=== PATIENT | female | born 1980 | race Caucasian/White ===

== ENCOUNTER 2020-01-29 19:07 | Emergency (ER) | payer BC, MEDICAID, OTHER ==
[2020-01-29] MEDS ORDERED: Acetaminophen/HYDROcodone 325-10 MG Tab PO ONE (19:44)
--- NOTE | 2020-01-29 19:50 | CR ---
PROCEDURE INFORMATION: Exam: XR Right Ankle Exam date and time: 01/29/2020 7:25 PM Age: 39 years old Clinical indication: Other: Right lateral ankle pain TECHNIQUE: Imaging protocol: XR Right ankle. Views: 3 or more views. COMPARISON: No relevant prior studies available. FINDINGS: Bones/joints: Spiral fracture distal fibula. Soft tissues: Soft tissue edema lateral malleolus. IMPRESSION: 1. Soft tissue edema lateral malleolus. 2. Spiral fracture distal fibula.
--- NOTE | 2020-01-29 19:51 | EDM.PDOC ---
ED HPI GENERAL MEDICAL PROBLEM - General Chief Complaint: Lower Extremity Injury/Pain Stated Complaint: POSSIBLE BROKEN ANKLE Time Seen by Provider: 01/29/20 19:30 Source of Information: Reports: Patient History Limitations: Reports: No Limitations - History of Present Illness INITIAL COMMENTS - FREE TEXT/NARRATIVE: This 39 yo female patient reports with right lateral ankle pain. The patient reports her dog pulled her while in the leash causing injury. Onset: Today Duration: Constant Location: Reports: Lower Extremity, Right Quality: Reports: Ache, Sharp Severity: Moderate Improves with: Reports: None Worsens with: Reports: None Context: Reports: Trauma Associated Symptoms: Reports: No Other Symptoms Right Ankle Pain Score (Numeric/FACES): 4 - Related Data Allergies Allergy/AdvReac Type Severity Reaction Status Date / Time bee venom protein (honey bee) Allergy Anaphylactic Verified 01/29/20 19:16 Shock Penicillins Allergy Cannot Verified 01/29/20 19:16 Remember Home Meds: Home Meds Topiramate [Topamax] 25 mg PO BEDTIME 01/29/20 [History] Past Medical History HEENT History: Reports: None Cardiovascular History: Reports: None Respiratory History: Reports: None Gastrointestinal History: Reports: None Genitourinary History: Reports: None [employer]IC[employer] History: Reports: None Musculoskeletal History: Reports: None Neurological History: Reports: None Psychiatric History: Reports: Anxiety Endocrine/Metabolic History: Reports: None Hematologic History: Reports: None Immunologic History: Reports: None Oncologic (Cancer) History: Reports: None Dermatologic History: Reports: None - Past Surgical History Head Surgeries/Procedures: Reports: None GI Surgical History: Reports: Appendectomy Female Surgical History: Reports: Section, Other (See Below) Other Female Surgeries/Procedures: 4 c- sections Social & Family History - Tobacco Use Smoking Status *Q: Heavy Tobacco Smoker Years of Tobacco use: 20 Packs/Tins Daily: 1 - Recreational Drug Use Recreational Drug Use: No Review of Systems - Review of Systems Review Of Systems: Comprehensive ROS is negative, except as noted in HPI. ED EXAM, GENERAL - Physical Exam Exam: See Below Exam Limited By: No Limitations General Appearance: Alert, WD/WN, No Apparent Distress Eye Exam: Bilateral Eye: EOMI, Normal Inspection, PERRL Ears: Normal External Exam, Normal Canal, Hearing Grossly Normal, Normal TMs Nose: Normal Inspection Throat/Mouth: Normal Inspection, Normal Lips, Normal Teeth, Normal Gums, Normal Oropharynx, Normal Voice, No Airway Compromise Head: Atraumatic, Normocephalic Neck: Normal Inspection, Supple, Non-Tender, Full Range of Motion Respiratory/Chest: No Respiratory Distress, Lungs Clear, Normal Breath Sounds, No Accessory Muscle Use, Chest Non-Tender Cardiovascular: Normal Peripheral Pulses, Regular Rate, Rhythm, No Edema, No Gallop, No JVD, No Murmur, No Rub GI/Abdominal: Normal Bowel Sounds, Soft, Non-Tender, No Organomegaly, No Distention, No Abnormal Bruit, No Mass (Female) Exam: Deferred Rectal (Female) Exam: Deferred Back Exam: Normal Inspection, Full Range of Motion, NT Extremities: Leg Pain (right lateral ankle pain) Neurological: Alert, Oriented, CN II-XII Intact, Normal Cognition, Normal Gait, Normal Reflexes, No Motor/Sensory Deficits Psychiatric: Normal Affect, Normal Mood Skin Exam: Warm, Dry, Intact, Normal Color, No Rash Lymphatic: No Adenopathy Course - Vital Signs Last Recorded V/S: Last Vital Signs Temp 36.2 C 01/29/20 19:21 Pulse 87 01/29/20 19:21 Resp 16 01/29/20 19:21 BP 123/95 H 01/29/20 19:21 Pulse Ox 100 01/29/20 19:21 - Orders/Labs/Meds Orders: Active Orders 24 hr Category Date Time Status Ankle Min 3V Rt [CR] Urgent Exams 01/29/20 19:24 Ordered DME for Discharge [COMM] Urgent Oth 01/29/20 19:44 Ordered Meds: Medications Discontinued Medications Generic Name Dose Route Start Last Admin Trade Name Farooqq PRN Reason Stop Dose Admin Hydrocodone Bitart/Acetaminophen 1 tab 01/29/20 19:44 Brent 325-10 Mg PO 01/29/20 19:45 ONETIME ONE Departure - Departure Time of Disposition: 19:47 Disposition: Home, Self-Care 01 Condition: Fair Clinical Impression: Closed fracture of right distal fibula Qualifiers: Encounter type: initial encounter Fracture morphology: other fracture Qualified Code(s): S82.831A - Other fracture of upper and lower end of right fibula, initial encounter for closed fracture - Discharge Information *PRESCRIPTION DRUG MONITORING PROGRAM REVIEWED*: Not Applicable *COPY OF PRESCRIPTION DRUG MONITORING REPORT IN PATIENT AUTUMN: Not Applicable Instructions: Nondisplaced Fibular Ankle Fracture Treated With Immobilization, Adult Care Plan Goals: The patient was advised of the examination and x-ray results during the visit. The patient was given an oral dose of Brent (10/325) while in the ED. The patient was placed in a right walking boot and given a set of crutches while in the ED. The patient was encouraged to rest, ice and elevate the area over the next 48 hours. The patient should follow-up with her primary care facility in about 1 week. If the patient has any additional symptoms or concerns, the patient should either return to the emergency department or visit her primary care facility. Sepsis Event Note (ED) - Evaluation Sepsis Screening Result: No Definite Risk - Focused Exam Vital Signs: Vital Signs Temp Pulse Resp BP Pulse Ox 01/29/20 19:21 36.2 C 87 16 123/95 H 100 - My Orders Last 24 Hours: My Active Orders 01/29/20 19:24 Ankle Min 3V Rt [CR] Urgent 01/29/20 19:44 DME for Discharge [COMM] Urgent - Assessment/Plan Last 24 Hours: My Active Orders 01/29/20 19:24 Ankle Min 3V Rt [CR] Urgent 01/29/20 19:44 DME for Discharge [COMM] Urgent
== END 2020-01-29 20:00 | disposition home or self-care (01) ==
LOC: DL.ED 19:07
DX: S82.831A Other fracture of upper and lower end of right fibula, initial encounter for closed fracture (principal); F17.210 Nicotine dependence, cigarettes, uncomplicated; Z88.0 Allergy status to penicillin; Z91.030 Bee allergy status; X50.1XXA Overexertion from prolonged static or awkward postures, initial encounter
CPT/HCPCS: 73610; 99283; A9270